=== PATIENT | male | born 1985 | race Caucasian/White ===

== ENCOUNTER 2016-08-12 15:00 | Emergency (ER) | payer OTHER ==
--- NOTE | ~2016-08-12 | CT16 ---
[facility] A Service of [facility] RADIOLOGY TEXT RESULTS PATIENT: BOB ARMANDO LOCATION: SED : 83 UNIT #: [id number] AGE: [address]: Mike Ames MD SEX: M ORDER DR: [id number] [address] [address] [id number] E MR#: [id number] Acc #: [id number] NAME: BOB ARMANDO : 1985 SEX: M STUDY DATE/TIME: 08/12/2016 17:15 UNIT: SED ROOM: STUDY DESCRIPTION: CT Angio Chest for PE Attending Physician: Mike Ames M.D. Ordering Physician: Mike Ames M.D. MEDICAL IMAGING REPORT This report is preliminary unless electronic signature is present. EXAM CT angiogram chest with IV contrast HISTORY Shortness of air and chest pain and chest tightness for 1 hour today. FINDINGS IV contrast-enhanced CT angiogram of the chest was performed with 3-D reconstructions. This CT exam was performed with one or more of the following radiation dose reduction techniques: Automatic exposure control, adjustment of mA and/or kV according to patient size, and iterative reconstruction. The lungs are clear. No infiltrates or effusions. No pulmonary emboli. Normal caliber pulmonary arteries. Normal caliber thoracic aorta. No adenopathy. No pericardial thickening or effusion. IMPRESSION Normal examination. Lungs are clear. No pulmonary emboli. Dictated by... Praneeth Mitchell M.D. THIS IS AN ELECTRONICALLY VERIFIED REPORT Praneeth Mitchell M.D. at 08/13/2016 3:07 PM DFL/melissa TD: 08/13/2016 03:17 JOB #: [id number] MEDICAL IMAGING REPORT [facility] A Service of [facility] & [facility] RADIOLOGY TEXT RESULTS PATIENT: BOB ARMANDO LOCATION: SED : 84 UNIT #: [id number] AGE: [address]: Mike Ames MD SEX: M ORDER DR: Page 1 of 1
--- NOTE | ~2016-08-12 | CR72 ---
[facility]. [facility] A Service of [facility] & [facility] RADIOLOGY TEXT RESULTS PATIENT: BOB ARMANDO LOCATION: SED : [birth year] UNIT #: [id number] AGE: [address]: Mike Ames MD SEX: M ORDER DR: [id number] [address] [address] [id number] E MR#: [id number] Acc #: [id number] NAME: BOB ARMANDO : 1985 SEX: M STUDY DATE/TIME: 08/12/2016 15:35 UNIT: SED ROOM: STUDY DESCRIPTION: CR Chest Single View Portable Attending Physician: Mike Amse M.D. Ordering Physician: Mike Ames M.D. MEDICAL IMAGING REPORT This report is preliminary unless electronic signature is present. EXAM Single view chest dated 08/12/2016. COMPARISON Two views chest dated 06/19/2010. HISTORY Pain, chest tightness for 1 hour today. Patient was at [facility] 3 days ago for dehydration. FINDINGS Single view of the chest was obtained. A single AP portable view of the chest shows both lungs to be clear. The heart is normal in size. The mediastinal contour is normal. No significant bone abnormalities are seen. IMPRESSION Normal portable chest. Dictated by... Marla Lynch M.D. THIS IS AN ELECTRONICALLY VERIFIED REPORT Marla Lynch M.D. at 08/13/2016 8:43 PM CPR/psc TD: 08/13/2016 00:33 JOB #: [id number] MEDICAL IMAGING REPORT Page 1 of 1
--- NOTE | ~2016-08-12 | EKG ---
PATIENT: BOB ARMANDO UNIT #: [id number] Ventricular Rate: 79 BPM Atrial Rate: 79 BPM P-R Interval: 152 ms QRS Duration: 86 ms Q-T Interval: 364 ms QTC Calculation(Bezet): 417 ms P [place]: 42 degrees Calculated R [place]: 73 degrees Calculated T [place]: 42 degrees Diagnosis Line: Normal sinus rhythm Diagnosis Line: Normal ECG Diagnosis Line: When compared with ECG of 19-JUN-2010 23:53, Diagnosis Line: No significant change was found Diagnosis Line: Confirmed by PATTIE PIERSON MD ([id number]) on Diagnosis Line: 08/15/2016 8:30:54 AM INTERPRETING MD: DANGELO WATSON
[2016-08-12] MEDS ORDERED: PROZAC PO (15:11)
[2016-08-12] MEDS ORDERED: BUPROPION HCL200 MG PO (15:12)
[2016-08-12 15:46] LABS: BASOPHIL# 0.1 X10e3 (0-0.3); DIFF IND NO; EOSINOPHIL# 0.1 X10e3 (0-0.7); EOSINOPHIL% 0.8 % (0.0-7.0); HEMATOCRIT 42.7 % (38.0-50.0); HEMOGLOBIN 14.6 gm/dL (13.0-16.0); LYMPHOCYTE# 2.2 X10e3 (1.0-3.5); LYMPHOCYTE% 21.3 % (17.0-45.0); MEAN CELL VOLUME 81.6 FL (83-96); MEAN CORPUSCULAR HEMOGLOBIN 27.9 PG (28-34); MEAN CORPUSCULAR HGB CONC 34.1 g/dL (30-36); MEAN PLATELET VOLUME 7.7 FL (6.5-11.5); MONOCYTE# 0.5 X10e3 (0-1.0); MONOCYTE% 4.9 % (3.0-12.0); NEUTROPHIL# 7.4 X10e3 (1.5-7.1); PLATELET COUNT 312 X10e3 (140-420); RED BLOOD COUNT 5.24 X10e (3.90-5.60); RED CELL DISTRIBUTION WIDTH 13.9 % (11.0-15.5); WHITE BLOOD COUNT 10.2 X10e3 (4.0-10.5)
[2016-08-12 15:55] LABS: POC - CKMB 2.1 ng/mL (0.0-7.9); POC - TROPONIN <0.05 ng/mL (<=0.05)
[2016-08-12 15:57] LABS: AMPHETAMINE NEG (NEG); BARBITURATES NEG (NEG); BENZODIAZEPINES NEG (NEG); COCAINE NEG (NEG); MARIJUANA NEG (NEG); OPIATES NEG (NEG); TRICYCLIC ANTIDEPRESSANTS NEG (NEG); U METHADONE NEG (NEG)
[2016-08-12 15:58] LABS: INR 1.1; PROTHROMBIN TIME (PATIENT) 12.3 SECONDS (9.5-12.4)
[2016-08-12 16:05] LABS: PARTIAL THROMBOPLASTIN TIME 30.5 SECONDS (25.6-38.1)
[2016-08-12 16:06] LABS: ALBUMIN SERUM 4.2 g/dL (3.5-5.0); ALCOHOL BLOOD <5 mg/dL (0); ALKALINE PHOSPHATASE 70 U/L (32-92); ALT (SGPT) 15 U/L (10-40); AST (SGOT) 22 U/L (10-42); BILIRUBIN, DIRECT 0.1 mg/dL (0.0-0.2); BILIRUBIN,INDIRECT 0.4 mg/dL (0.0-0.9); BILIRUBIN,TOTAL 0.5 mg/dL (0.2-2.0); BLOOD UREA NITROGEN 13 mg/dL (9-23); BUN/CREATININE RATIO 16.25; CALCIUM SERUM 9.1 mg/dL (8.4-10.2); CARBON DIOXIDE 25 mmol/L (22-31); CHLORIDE 100 mmol/L (100-111); CREATININE SERUM 0.8 mg/dL (0.6-1.4); GLOM FILT RATE Estimated 118.2 mL/min (>60); GLUCOSE FASTING 87 mg/dL (70-110); POTASSIUM 3.9 mmol/L (3.5-5.1); PROTEIN TOTAL SERUM 8.3 g/dL (6.0-8.3); SODIUM 134 mmol/L (135-145)
[2016-08-12 17:57] LABS: POC - CKMB <1.0 ng/mL (0.0-7.9); POC - TROPONIN <0.05 ng/mL (<=0.05)
== END 2016-08-12 18:43 | disposition home or self-care (01) ==
LOC: SED 15:00
PROVIDERS: Emergency Medicine
DX: R06.02 Shortness of breath (principal); F41.9 Anxiety disorder, unspecified; F43.10 Post-traumatic stress disorder, unspecified; F17.200 Nicotine dependence, unspecified, uncomplicated; Z79.899 Other long term (current) drug therapy
CPT/HCPCS: 36415; 71010; 71275; 80048; 80076; 80307; 82553; 84484; 85025; 85379; 85610; 85730; 93005; 99285; G0480; Q9967